=== PATIENT | female | born 1960 ===

== ENCOUNTER 2021-11-18 20:16 | Observation (INO) | payer OTHER ==
[~2021-11-18] VITALS: Ht 154.9 cm; Wt 72.1 kg
[~2021-11-18 20:16] MED LIST: ADVAIR HFA 115/1 INH INH
[2021-11-19] MEDS ORDERED: PREVACID30 MG PO (00:05)
[2021-11-19] MEDS ORDERED: ALL DAY ALLERGY10 M2 PO (00:05)
[2021-11-19] MEDS ORDERED: MELOXICAM15 MG PO (00:06)
[2021-11-19] MEDS ORDERED: LIPITOR TAB 1010 MG PO (00:06)
[2021-11-19] MEDS ORDERED: LISINOPRIL10 MG PO (00:07)
[2021-11-19] MEDS ORDERED: CYCLOBENZAPRINE10 MG PO (00:07)
[2021-11-19] MEDS ORDERED: CELEXA40 MG PO (00:07)
[2021-11-19] MEDS ORDERED: PROTONIX40 MG PO (00:08)
[2021-11-19] MEDS ORDERED: TOPROL XL50 MG PO (00:08)
[2021-11-19] MEDS ORDERED: LEVOTHYROXINE50 MC1 PO (00:09)
[2021-11-19] MEDS ORDERED: VITAMIN D21250 MCG PO (00:11)
== END 2021-11-19 15:30 | disposition home or self-care (01) ==
LOC: PROG CARE 20:16
PROVIDERS: ADMIT Internal Medicine
DX: R00.0 Tachycardia, unspecified (principal); M79.601 Pain in right arm; E11.9 Type 2 diabetes mellitus without complications; I11.9 Hypertensive heart disease without heart failure; E03.9 Hypothyroidism, unspecified; E78.5 Hyperlipidemia, unspecified; J45.909 Unspecified asthma, uncomplicated; G89.29 Other chronic pain; I08.3 Combined rheumatic disorders of mitral, aortic and tricuspid valves; M54.50 Low back pain, unspecified; W07.XXXA Fall from chair, initial encounter; Z96.651 Presence of right artificial knee joint; Z98.51 Tubal ligation status; Z20.822 Contact with and (suspected) exposure to COVID-19
CPT/HCPCS: ECHO; 36415; 82550; 82553; 83735; 84439; 84443; 84484; 93005; 93270; 93306; G0378; G0379